=== PATIENT | male | born 1995 | race Caucasian/White ===

== ENCOUNTER 2016-10-14 10:42 | Emergency (ER) | payer OTHER ==
[~2016-10-14] VITALS: Ht 188 cm; Wt 61.2 kg
--- NOTE | ~2016-10-14 | CR21 ---
[facility] A Service of [facility] RADIOLOGY TEXT RESULTS PATIENT: CAMDEN FULLER LOCATION: [facility] : [birth year] UNIT #: [id number] AGE: [address]: Tianna Cortez SEX: M ORDER DR: [id number] [facility] [address] [place], [place] [address] [id number] MR#: [id number] Acc #: [id number] NAME: CAMDEN FULLER : 1995 SEX: M STUDY DATE/TIME: UNIT: CFTX ROOM: STUDY DESCRIPTION: CR Ankle Min 3 Views Rt Attending Physician: Tianna Cortez Pa-C Ordering Physician: Ed Doc hCar Serna Primary Care Physician: Primary Care Physician No MEDICAL IMAGING REPORT This report is preliminary unless electronic signature is present EXAM Right ankle 3 views 10/14/2016 1118 hours HISTORY Patient complains of pain and swelling today after stepping in a hole with twisting injury. COMPARISON None FINDINGS AP, lateral and oblique views demonstrate medial greater than lateral soft tissue swelling. The patient has vague ossicles in the medial soft tissues distal to the medial malleolus which could represent chronic change versus small avulsion fracture. The ankle mortise appears symmetric. Talus is intact. IMPRESSION There is medial greater than lateral soft tissue swelling. There is no disruption of the ankle mortise. There is a vague soft tissue calcification distal to the distal tip of the medial malleolus. This is indeterminate. A small avulsion fracture cannot be excluded. This could however be chronic. Dictated by... Erica Randhawa M.D. THIS IS AN ELECTRONICALLY VERIFIED REPORT Erica Randhawa M.D. at 10/15/2016 9:24 AM SMM/jose ramon TD: 10/14/2016 20:06 JOB #: [id number] [facility] A Service of [facility] RADIOLOGY TEXT RESULTS PATIENT: CAMDEN FULLER LOCATION: [facility] : [birth year] UNIT #: [id number] AGE: [address]: Tianna Cortez SEX: M ORDER DR: MEDICAL IMAGING REPORT Page 1 of 1 COPY
== END 2016-10-14 12:20 | disposition home or self-care (01) ==
LOC: CED 10:42 → CFTX 10:42
DX: S82.51XA Displaced fracture of medial malleolus of right tibia, initial encounter for closed fracture (principal); F17.200 Nicotine dependence, unspecified, uncomplicated; X50.1XXA Overexertion from prolonged static or awkward postures, initial encounter; Y93.61 Activity, american tackle football; Y92.009 Unspecified place in unspecified non-institutional (private) residence as the place of occurrence of the external cause
CPT/HCPCS: 29515; 73610; 99283